=== PATIENT | male | born 1945 | race Caucasian/White ===

== ENCOUNTER 2017-08-23 09:19 | Emergency (ER) | payer OTHER ==
[~2017-08-23] VITALS: Ht 180.3 cm; Wt 103.3 kg
[2017-08-23 12:18] LABS: HEMATOCRIT 42.7 % (38.0-50.0); HEMOGLOBIN 14.5 G/DL (12.5-16.6); MCH 31.6 PG (29.0-34.0); PLATELET COUNT 174 K/uL (156-360); RBC DIS.WIDTH-CV 15.2 % (11.8-14.6); RED BLOOD COUNT 4.59 M/uL (4.00-5.50); WHITE BLOOD COUNT 6.2 K/uL (4.1-10.2)
[2017-08-23] MEDS ORDERED: BACTRIM,SEPT1 TABLET PO (13:21)
[2017-08-23] MEDS ORDERED: AUGMENTIN875 MG PO (13:41)
[2017-08-23 13:47] VITALS: BP 129/76
== END 2017-08-23 14:01 | disposition home or self-care (01) ==
LOC: EME 09:19
PROVIDERS: Physician Assistant
DX: L03.116 Cellulitis of left lower limb (principal); S80.12XA Contusion of left lower leg, initial encounter; R60.0 Localized edema; W20.8XXA Other cause of strike by thrown, projected or falling object, initial encounter; E78.5 Hyperlipidemia, unspecified; I10 Essential (primary) hypertension; Z87.891 Personal history of nicotine dependence
CPT/HCPCS: 73590; 73630; 85027; 93971; 99281; 99284